=== PATIENT | male | born 1985 | race Caucasian/White ===

== ENCOUNTER 2017-03-08 12:23 | Emergency (ER) | payer MEDICAID, OTHER, SELFPAY ==
[~2017-03-08] VITALS: Ht 175.3 cm; Wt 104.8 kg
[2017-03-08 12:25] VITALS: BP 143/71
== END 2017-03-08 13:42 | disposition home or self-care (01) ==
LOC: ED 13:20
DX: G56.01 Carpal tunnel syndrome, right upper limb (principal); G56.22 Lesion of ulnar nerve, left upper limb; Z87.891 Personal history of nicotine dependence
CPT/HCPCS: 99281

== ENCOUNTER 2018-05-15 14:00 | Emergency (ER) | payer MEDICAID ==
[~2018-05-15] VITALS: Ht 175.3 cm; Wt 88.0 kg
[2018-05-15 14:02] VITALS: BP 113/79
[2018-05-15] MEDS ORDERED: IBUPROFEN 200 MG TABLET ONE (15:50)
[2018-05-15] MEDS ORDERED: IBUPROFEN 800 MG TABLET PO PRN (16:00)
== END 2018-05-15 15:54 | disposition home or self-care (01) ==
LOC: ED 15:48
DX: L02.414 Cutaneous abscess of left upper limb (principal)
CPT/HCPCS: 10060; 99283

== ENCOUNTER 2018-09-06 09:20 | Emergency (ER) | payer MEDICAID ==
[~2018-09-06] VITALS: Ht 175.3 cm; Wt 89.0 kg
[~2018-09-06 09:20] MED LIST: DOCU-131 PO; LINE600T33 PO; ONDA4TAB13 PO; OXYC20TA42 PO; POLY17PO5 PO
[2018-09-06 09:58] LABS: ANION GAP 9 mmol/L (5-15); CALCIUM 8.7 mg/dL (8.5-10.1); CHLORIDE 107 mmol/L (98-107)
[2018-09-06 10:37] VITALS: BP 101/59
[2018-09-06 10:39] LABS: BASOPHILS # (AUTO) 0.03 x10^3/uL (0-0.1); BASOPHILS % (AUTO) 0 % (0-1); EOSINOPHILS # (AUTO) 0.74 x10^3/uL (0-0.4); EOSINOPHILS % (AUTO) 9 % (1-7); LYMPHOCYTES # (AUTO) 2.85 x10^3/uL (1-3.4); LYMPHOCYTES % (AUTO) 34 % (22-44); MD NO; MEAN CORPUSCULAR HEMOGLOBIN 29.3 pg (27.5-34.5); MEAN CORPUSCULAR HGB CONC 34.1 g/dL (33.2-36.2); MEAN CORPUSCULAR VOLUME 85.7 fL (81-97); MEAN PLATELET VOLUME 8.5 fL (7.4-10.4); MONOCYTES # (AUTO) 0.64 x10^3/uL (0.2-0.8); MONOCYTES % (AUTO) 8 % (2-9); NEUTROPHILS # (AUTO) 4.17 x10^3/uL (1.8-6.8); NEUTROPHILS % (AUTO) 50 % (42-75); PLATELET COUNT 273 x10^3/uL (130-400); RED CELL DISTRIBUTION WIDTH 14.3 % (9.4-14.8)
== END 2018-09-06 11:58 | disposition home or self-care (01) ==
LOC: ED 11:11
DX: S00.83XA Contusion of other part of head, initial encounter (principal); F11.10 Opioid abuse, uncomplicated; R55 Syncope and collapse; R51 Headache; M54.2 Cervicalgia; X58.XXXA Exposure to other specified factors, initial encounter; Y93.89 Activity, other specified; Y99.8 Other external cause status; Y92.59 Other trade areas as the place of occurrence of the external cause
CPT/HCPCS: 36415; 70450; 72125; 80048; 80307; 85025; 93005; 99285

== ENCOUNTER 2018-10-03 11:14 | Emergency (ER) | payer MEDICAID ==
[~2018-10-03] VITALS: Ht 177.8 cm; Wt 88.8 kg
[2018-10-03] MEDS ORDERED: ONDANSETRON ODT 4 MG PO ONE (12:30)
[2018-10-03 12:36] LABS: BASOPHILS # (AUTO) 0.03 x10^3/uL (0-0.1); BASOPHILS % (AUTO) 0 % (0-1); EOSINOPHILS # (AUTO) 0.26 x10^3/uL (0-0.4); EOSINOPHILS % (AUTO) 2 % (1-7); LYMPHOCYTES # (AUTO) 1.95 x10^3/uL (1-3.4); LYMPHOCYTES % (AUTO) 15 % (22-44); MD NO; MEAN CORPUSCULAR HEMOGLOBIN 29.4 pg (27.5-34.5); MEAN CORPUSCULAR HGB CONC 34.3 g/dL (33.2-36.2); MEAN CORPUSCULAR VOLUME 85.9 fL (81-97); MEAN PLATELET VOLUME 8.1 fL (7.4-10.4); MONOCYTES % (AUTO) 8 % (2-9); NEUTROPHILS # (AUTO) 9.97 x10^3/uL (1.8-6.8); NEUTROPHILS % (AUTO) 76 % (42-75); PLATELET COUNT 293 x10^3/uL (130-400); RED BLOOD COUNT 5.27 x10^6/uL (4.38-5.82); RED CELL DISTRIBUTION WIDTH 13.6 % (9.4-14.8)
[2018-10-03] MEDS ORDERED: ONDANSETRON ODT 4 MG ONE (12:47)
[2018-10-03 12:48] LABS: ALBUMIN 3.7 g/dL (3.4-5.0); ANION GAP 8 mmol/L (5-15); CHLORIDE 108 mmol/L (98-107)
[2018-10-03 12:52] LABS: ALANINE AMINOTRANSFERASE 35 U/L (12-78); ALKALINE PHOSPHATASE 78 U/L (45-117); BILIRUBIN,TOTAL 0.4 mg/dL (0.2-1.0); TOTAL PROTEIN 7.2 g/dL (6.4-8.2)
[2018-10-03] MEDS ORDERED: SODIUM CHLORIDE 0.9% 1,000 ML IV ONE (13:06)
[2018-10-03] MEDS ORDERED: HYDROmorphone 2 MG/ML, 1ML ONE (13:15)
[2018-10-03] MEDS ORDERED: ONDANSETRON 2MG/ML, 2ML ONE (13:15)
[2018-10-03] MEDS ORDERED: ONDANSETRON 2MG/ML, 2ML IVPush ONE (13:30)
[2018-10-03] MEDS ORDERED: SODIUM CHLORIDE FLUSH 10ML SYR IVF ONE (13:30)
[2018-10-03] MEDS ORDERED: SODIUM CHLORIDE 0.9% 1,000ML IVBOLUS ONE (13:30)
[2018-10-03] MEDS ORDERED: HYDROmorphone 2 MG/ML, 1ML IVPush PRN (13:30)
[2018-10-03] MEDS ORDERED: OMNIPAQUE 350 MG/ML, 100ML BOTTLE ONE (14:23)
[2018-10-03 15:39] LABS: MICROSCOPIC NOT IND
[2018-10-03 15:46] LABS: CULTURE INDICATED? NO
[2018-10-03 17:23] VITALS: BP 116/71
== END 2018-10-03 17:26 | disposition home or self-care (01) ==
LOC: ED 13:26
DX: K52.9 Noninfective gastroenteritis and colitis, unspecified (principal); E86.9 Volume depletion, unspecified; Z90.89 Acquired absence of other organs
CPT/HCPCS: 36415; 74177; 80053; 81003; 83690; 85025; 96374; 96375; 99285; J1170; J2405; Q0162; Q9967

== ENCOUNTER 2018-10-12 03:10 | Inpatient (IN) | payer MEDICAID ==
[~2018-10-12] VITALS: Ht 177.8 cm; Wt 96.0 kg
[2018-10-12] MEDS ORDERED: ONDANSETRON 2MG/ML, 2ML ONE ×2 (03:43→08:06)
[2018-10-12] MEDS ORDERED: FAMOTIDINE 20 MG/2 ML ONE (03:44)
[2018-10-12] MEDS ORDERED: HYDROmorphone 2 MG/ML, 1ML ONE ×4 (03:44→10:39)
[2018-10-12] MEDS: HYDROmorphone 2 MG/ML, 1ML IVPush PRN ×7 (03:46→23:15)
[2018-10-12 04:00] LABS: BASOPHILS # (AUTO) 0.05 x10^3/uL (0-0.1); BASOPHILS % (AUTO) 0 % (0-1); EOSINOPHILS % (AUTO) 6 % (1-7); LYMPHOCYTES # (AUTO) 1.76 x10^3/uL (1-3.4); LYMPHOCYTES % (AUTO) 14 % (22-44); MD NO; MEAN CORPUSCULAR HEMOGLOBIN 29.1 pg (27.5-34.5); MEAN CORPUSCULAR HGB CONC 34.1 g/dL (33.2-36.2); MEAN CORPUSCULAR VOLUME 85.3 fL (81-97); MEAN PLATELET VOLUME 9.2 fL (7.4-10.4); MONOCYTES # (AUTO) 0.55 x10^3/uL (0.2-0.8); MONOCYTES % (AUTO) 4 % (2-9); NEUTROPHILS # (AUTO) 9.59 x10^3/uL (1.8-6.8); NEUTROPHILS % (AUTO) 76 % (42-75); PLATELET COUNT 299 x10^3/uL (130-400); RED BLOOD COUNT 5.24 x10^6/uL (4.38-5.82); RED CELL DISTRIBUTION WIDTH 13.8 % (9.4-14.8)
[2018-10-12] MEDS ORDERED: SODIUM CHLORIDE FLUSH 10ML SYR IVF ONE (04:00)
[2018-10-12] MEDS ORDERED: ONDANSETRON 2MG/ML, 2ML IVPush ONE (04:00)
[2018-10-12] MEDS ORDERED: FAMOTIDINE 20 MG/2 ML IVP ONE (04:00)
[2018-10-12 04:12] LABS: ALANINE AMINOTRANSFERASE 13 U/L (12-78); ALBUMIN 3.3 g/dL (3.4-5.0); ANION GAP 9 mmol/L (5-15); CALCIUM 8.4 mg/dL (8.5-10.1); CHLORIDE 104 mmol/L (98-107); CREATININE 0.89 mg/dL (0.7-1.3)
[2018-10-12 04:14] LABS: ALKALINE PHOSPHATASE 79 U/L (45-117); BILIRUBIN,TOTAL 0.5 mg/dL (0.2-1.0); TOTAL PROTEIN 7.1 g/dL (6.4-8.2)
[2018-10-12] MEDS ORDERED: METOCLOPRAMIDE 5 MG/ML, 2ML IVPush ONE (05:00)
[2018-10-12] MEDS ORDERED: METOCLOPRAMIDE 5 MG/ML, 2ML ONE (05:01)
[2018-10-12] MEDS ORDERED: OMNIPAQUE 350 MG/ML, 100ML BOTTLE ONE (05:42)
[2018-10-12] MEDS ORDERED: METRONIDAZOLE PMX 500MG/100ML 100 ML ONE (06:15)
[2018-10-12] MEDS ORDERED: HYDROmorphone 1 MG/ML, 1ML IV ONE (06:30)
[2018-10-12] MEDS ORDERED: CEFEPIME 2 GM in DEXTROSE 5% 100 ML IV ONE (06:30)
[2018-10-12] MEDS ORDERED: METRONIDAZOLE PMX 500MG/100ML 100 ML IV SCH (06:30)
[2018-10-12 07:11] LABS: MICROSCOPIC INDICATED
[2018-10-12 07:22] LABS: CULTURE INDICATED? NO
[2018-10-12 07:30] LABS: CLOSTRIDIUM DIFFICILE ANTIGEN NEGATIVE; CLOSTRIDIUM DIFFICILE TOXIN NEGATIVE (Negative)
[2018-10-12] MEDS ORDERED: HYDROmorphone 1 MG/ML, 1ML IV PRN (07:30)
[2018-10-12] MEDS: SODIUM CHLORIDE 0.9% 1,000 ML IV SCH ×6 (07:30→21:17)
[2018-10-12] MEDS ORDERED: ONDANSETRON ODT 4 MG PO PRN (08:00)
[2018-10-12] MEDS ORDERED: hydrALAzine 20 MG/ML, 1ML IVPush PRN (08:00)
[2018-10-12] MEDS ORDERED: PROCHLORPERAZINE 5 MG/ML, 2ML IV PRN (08:00)
[2018-10-12] MEDS ORDERED: POTASSIUM CHLORIDE 40 MEQ in SODIUM CHLORIDE 0.9% 500 ML IV ONE (08:00)
[2018-10-12] MEDS ORDERED: LABETALOL 5MG/ML, 20ML IVPush PRN (08:00)
[2018-10-12] MEDS: CEFTRIAXONE PMX 1GM/50ML 50 ML IV SCH (08:00)
[2018-10-12] MEDS ORDERED: ACETAMINOPHEN 325 MG TABLET PO PRN (08:00)
[2018-10-12] MEDS ORDERED: FENTANYL PF 250 MCG/5ML ONE ×2 (08:03→09:31)
[2018-10-12] MEDS ORDERED: MIDAZOLAM 1 MG/ML, 2ML ONE (08:03)
[2018-10-12] MEDS ORDERED: ROCURONIUM 10MG/ML,5ML ONE ×2 (08:06→10:09)
[2018-10-12] MEDS ORDERED: DEXAMETHASONE 4 MG/ML, 1ML ONE (08:06)
[2018-10-12] MEDS ORDERED: CEFAZOLIN 1,000 MG ONE (08:06)
[2018-10-12] MEDS ORDERED: GLYCOPYRROLATE 0.2MG/1ML, 5ML ONE (08:06)
[2018-10-12] MEDS ORDERED: NEOSTIGMINE 1 MG/ML, 10ML ONE (08:06)
[2018-10-12] MEDS ORDERED: PROPOFOL 10 MG/ML, 20ML ONE (08:06)
[2018-10-12] MEDS ORDERED: SUCCINYLCHOLINE 20 MG/ML, 10ML ONE (08:06)
[2018-10-12 08:09] VITALS: BP 140/83
[2018-10-12] MEDS ORDERED: BUPIVACAINE/PF-EPI 0.5% 1:200K ONE (08:31)
[2018-10-12] MEDS: FAMOTIDINE 20 MG/2 ML IVPush SCH ×2 (09:00→21:17)
[2018-10-12] MEDS ORDERED: LABETALOL 5MG/ML, 20ML IV PRN (09:00)
[2018-10-12] MEDS ORDERED: ONDANSETRON ODT 8 MG PO PRN (09:00)
[2018-10-12] MEDS ORDERED: MORPHINE SULFATE 4 MG/ML, 1ML IVPush PRN (09:00)
[2018-10-12] MEDS ORDERED: ONDANSETRON 2MG/ML, 2ML IV PRN (09:00)
[2018-10-12] MEDS ORDERED: PROMETHAZINE 25 MG SUPP PR PRN (09:00)
[2018-10-12] MEDS ORDERED: PROMETHAZINE 25 MG/ML, 1ML IV PRN (09:00)
[2018-10-12] MEDS ORDERED: MEPERIDINE/PF 25MG/0.5ML IVPush PRN (09:00)
[2018-10-12] MEDS ORDERED: OXYcodone 5 MG/5 ML ORAL.SOL UDC PO PRN (09:00)
[2018-10-12] MEDS ORDERED: PROMETHAZINE 25 MG/ML, 1ML IM PRN ×2 (09:00)
[2018-10-12] MEDS ORDERED: PROMETHAZINE 12.5 MG SUPP PR PRN (09:00)
[2018-10-12] MEDS: METRONIDAZOLE PMX 500MG/100ML 100 ML IV SCH ×3 (09:00→21:17)
[2018-10-12] MEDS ORDERED: hydrALAzine 20 MG/ML, 1ML IV PRN (09:00)
[2018-10-12] MEDS ORDERED: BUPIVACAINE/PF-EPI 0.5% 1:200K INFIL ONE (09:13)
[2018-10-12] MEDS ORDERED: FENTANYL PF 100 MCG/2ML ONE ×5 (09:20→10:39)
[2018-10-12] MEDS: FENTANYL PF 100 MCG/2ML IV PRN ×2 (10:40→10:50)
[2018-10-12] MEDS: HYDROmorphone 1 MG/ML, 1ML IV PRN ×4 (10:45→11:10)
[2018-10-12] MEDS ORDERED: ACETAMINOPHEN 500 MG TABLET PO PRN (11:00)
[2018-10-12] MEDS: KETOROLAC 30 MG/1 ML IVPush SCH ×2 (11:00→19:51)
[2018-10-12] MEDS ORDERED: KETOROLAC 30 MG/1 ML ONE (11:04)
[2018-10-12 12:10] LABS: FREE T4 (FREE THYROXINE) 1.06 ng/dL (0.76-1.46); THYROID STIMULATING HORMONE 5.66 mIU/L (0.358-3.740)
[2018-10-12 12:16] VITALS: BP 128/83
[2018-10-12 12:56] LABS: INTERNATIONAL NORMALIZED RATIO 1.32 (0.93-1.1); PROTHROMBIN TIME 13.8 Seconds (9.6-11.5)
[2018-10-12] MEDS: NICOTINE 7 MG/24 HR PATCH.TD24 TD SCH (12:58)
[2018-10-12 14:30] VITALS: BP 119/71
[2018-10-12 19:45] VITALS: BP 111/96
[2018-10-13] MEDS: SODIUM CHLORIDE 0.9% 1,000 ML IV SCH ×4 (01:32→19:59)
[2018-10-13 01:55] VITALS: BP 122/74
[2018-10-13] MEDS: METRONIDAZOLE PMX 500MG/100ML 100 ML IV SCH ×4 (02:37→21:28)
[2018-10-13] MEDS: KETOROLAC 30 MG/1 ML IVPush SCH ×4 (02:37→19:59)
[2018-10-13 07:04] LABS: MEAN CORPUSCULAR HEMOGLOBIN 28.2 pg (27.5-34.5); MEAN CORPUSCULAR VOLUME 85.4 fL (81-97); MEAN PLATELET VOLUME 8.7 fL (7.4-10.4); PLATELET COUNT 222 x10^3/uL (130-400); RED BLOOD COUNT 4.65 x10^6/uL (4.38-5.82); RED CELL DISTRIBUTION WIDTH 13.1 % (9.4-14.8)
[2018-10-13 07:13] LABS: ALBUMIN 2.6 g/dL (3.4-5.0); ANION GAP 4 mmol/L (5-15); CALCIUM 8.3 mg/dL (8.5-10.1); CHLORIDE 109 mmol/L (98-107)
[2018-10-13 07:15] LABS: ALANINE AMINOTRANSFERASE 11 U/L (12-78); ALKALINE PHOSPHATASE 67 U/L (45-117); BILIRUBIN,TOTAL 0.7 mg/dL (0.2-1.0); CREATININE 0.75 mg/dL (0.7-1.3); TOTAL PROTEIN 5.6 g/dL (6.4-8.2)
[2018-10-13 07:17] LABS: BASOPHILS # (AUTO) 0.02 x10^3/uL (0-0.1); BASOPHILS % (AUTO) 0 % (0-1); EOSINOPHILS # (AUTO) 0.07 x10^3/uL (0-0.4); EOSINOPHILS % (AUTO) 0 % (1-7); LYMPHOCYTES # (AUTO) 0.92 x10^3/uL (1-3.4); LYMPHOCYTES % (AUTO) 6 % (22-44); MD SCAN; MONOCYTES % (AUTO) 2 % (2-9); NEUTROPHILS # (AUTO) 15.53 x10^3/uL (1.8-6.8); NEUTROPHILS % (AUTO) 92 % (42-75)
[2018-10-13] MEDS: CEFTRIAXONE PMX 1GM/50ML 50 ML IV SCH (08:24)
[2018-10-13] MEDS: NICOTINE 7 MG/24 HR PATCH.TD24 TD SCH (08:24)
[2018-10-13 09:00] VITALS: BP 123/71
[2018-10-13] MEDS ORDERED: MAGNESIUM SULFATE PMX 2GM/50ML 50 ML IV ONE (09:00)
[2018-10-13] MEDS: HYDROmorphone 2 MG/ML, 1ML IVPush PRN ×5 (09:34→21:29)
[2018-10-13] MEDS: FAMOTIDINE 20 MG/2 ML IVPush SCH ×2 (09:34→21:29)
[2018-10-13 13:10] VITALS: BP 122/59
[2018-10-13 14:15] LABS: AMPHETAMINE SCREEN, URINE Positive (Negative); BARBITURATE SCREEN, URINE Negative (Negative); BENZODIAZEPINE SCREEN, URINE Negative (Negative); CANNABINOID SCREEN, URINE Positive (Negative); COCAINE SCREEN, URINE Negative (Negative); METHADONE SCREEN, URINE Negative (Negative); OPIATE SCREEN, URINE Positive (Negative)
[2018-10-13] MEDS: LIDODERM 5% PATCH TD SCH (16:59)
[2018-10-13 18:45] VITALS: BP 128/67
[2018-10-14] MEDS: HYDROmorphone 2 MG/ML, 1ML IVPush PRN ×6 (00:34→19:46)
[2018-10-14 01:40] VITALS: BP 125/73
[2018-10-14] MEDS: KETOROLAC 30 MG/1 ML IVPush SCH ×4 (02:12→20:38)
[2018-10-14] MEDS: SODIUM CHLORIDE 0.9% 1,000 ML IV SCH ×3 (02:13→17:13)
[2018-10-14] MEDS: METRONIDAZOLE PMX 500MG/100ML 100 ML IV SCH ×4 (03:15→20:38)
[2018-10-14 07:18] LABS: ANION GAP 9 mmol/L (5-15); CALCIUM 8.1 mg/dL (8.5-10.1); CHLORIDE 110 mmol/L (98-107); CREATININE 0.62 mg/dL (0.7-1.3)
[2018-10-14 07:35] VITALS: BP 116/65
[2018-10-14 07:35] LABS: MEAN CORPUSCULAR HEMOGLOBIN 28.6 pg (27.5-34.5); MEAN CORPUSCULAR HGB CONC 33.3 g/dL (33.2-36.2); MEAN CORPUSCULAR VOLUME 85.7 fL (81-97); PLATELET COUNT 226 x10^3/uL (130-400); RED BLOOD COUNT 4.32 x10^6/uL (4.38-5.82); RED CELL DISTRIBUTION WIDTH 13.5 % (9.4-14.8)
[2018-10-14 08:11] LABS: BASOPHILS # (AUTO) 0.01 x10^3/uL (0-0.1); BASOPHILS % (AUTO) 0 % (0-1); EOSINOPHILS % (AUTO) 2 % (1-7); LYMPHOCYTES # (AUTO) 1.43 x10^3/uL (1-3.4); LYMPHOCYTES % (AUTO) 11 % (22-44); MD SCAN; MONOCYTES # (AUTO) 0.72 x10^3/uL (0.2-0.8); MONOCYTES % (AUTO) 5 % (2-9); NEUTROPHILS # (AUTO) 10.97 x10^3/uL (1.8-6.8); NEUTROPHILS % (AUTO) 82 % (42-75)
[2018-10-14] MEDS: CEFTRIAXONE PMX 1GM/50ML 50 ML IV SCH (08:19)
[2018-10-14] MEDS: FAMOTIDINE 20 MG/2 ML IVPush SCH ×2 (08:19→21:51)
[2018-10-14] MEDS: NICOTINE 7 MG/24 HR PATCH.TD24 TD SCH (08:19)
[2018-10-14] MEDS: OXYcodone IR 5MG TABLET PO PRN ×3 (12:09→21:51)
[2018-10-14 12:27] VITALS: BP 116/71
[2018-10-14] MEDS: LIDODERM 5% PATCH TD SCH (16:59)
[2018-10-14 19:45] VITALS: BP 110/70
[2018-10-15] MEDS: HYDROmorphone 2 MG/ML, 1ML IVPush PRN ×6 (00:45→22:49)
[2018-10-15] MEDS: SODIUM CHLORIDE 0.9% 1,000 ML IV SCH ×4 (00:45→22:48)
[2018-10-15] MEDS: OXYcodone IR 5MG TABLET PO PRN ×5 (01:57→19:47)
[2018-10-15] MEDS: KETOROLAC 30 MG/1 ML IVPush SCH ×4 (01:57→19:47)
[2018-10-15] MEDS: METRONIDAZOLE PMX 500MG/100ML 100 ML IV SCH ×4 (01:57→19:47)
[2018-10-15 01:59] VITALS: BP 132/93
[2018-10-15 05:46] LABS: CHLORIDE 110 mmol/L (98-107)
[2018-10-15 05:57] LABS: ALANINE AMINOTRANSFERASE 10 U/L (12-78); ALBUMIN 2.5 g/dL (3.4-5.0); ALKALINE PHOSPHATASE 58 U/L (45-117); ANION GAP 7 mmol/L (5-15); BILIRUBIN,TOTAL 0.3 mg/dL (0.2-1.0); CALCIUM 8.6 mg/dL (8.5-10.1); CREATININE 0.53 mg/dL (0.7-1.3); TOTAL PROTEIN 5.6 g/dL (6.4-8.2)
[2018-10-15 06:01] LABS: MEAN CORPUSCULAR HEMOGLOBIN 29.4 pg (27.5-34.5); MEAN CORPUSCULAR HGB CONC 34.4 g/dL (33.2-36.2); MEAN CORPUSCULAR VOLUME 85.5 fL (81-97); MEAN PLATELET VOLUME 8.7 fL (7.4-10.4); PLATELET COUNT 213 x10^3/uL (130-400); RED BLOOD COUNT 4.14 x10^6/uL (4.38-5.82); RED CELL DISTRIBUTION WIDTH 13.6 % (9.4-14.8)
[2018-10-15 06:25] LABS: BASOPHILS # (AUTO) 0.04 x10^3/uL (0-0.1); BASOPHILS % (AUTO) 0 % (0-1); EOSINOPHILS # (AUTO) 1.29 x10^3/uL (0-0.4); EOSINOPHILS % (AUTO) 13 % (1-7); LYMPHOCYTES # (AUTO) 2.19 x10^3/uL (1-3.4); LYMPHOCYTES % (AUTO) 23 % (22-44); MD SCAN; MONOCYTES # (AUTO) 0.57 x10^3/uL (0.2-0.8); MONOCYTES % (AUTO) 6 % (2-9); NEUTROPHILS # (AUTO) 5.65 x10^3/uL (1.8-6.8); NEUTROPHILS % (AUTO) 58 % (42-75)
[2018-10-15 07:07] VITALS: BP 126/80
[2018-10-15] MEDS: NICOTINE 7 MG/24 HR PATCH.TD24 TD SCH (07:59)
[2018-10-15] MEDS: FAMOTIDINE 20 MG/2 ML IVPush SCH ×2 (07:59→19:47)
[2018-10-15] MEDS: CEFTRIAXONE PMX 1GM/50ML 50 ML IV SCH (09:12)
[2018-10-15 12:00] VITALS: BP 137/92
[2018-10-15] MEDS: LIDODERM 5% PATCH TD SCH (17:21)
[2018-10-15 19:49] VITALS: BP 138/86
[2018-10-16 01:40] VITALS: BP 122/83
[2018-10-16] MEDS: OXYcodone IR 5MG TABLET PO PRN ×3 (01:47→09:50)
[2018-10-16] MEDS: METRONIDAZOLE PMX 500MG/100ML 100 ML IV SCH ×2 (02:01→08:11)
[2018-10-16] MEDS: KETOROLAC 30 MG/1 ML IVPush SCH ×2 (02:01→08:11)
[2018-10-16] MEDS: SODIUM CHLORIDE 0.9% 1,000 ML IV SCH (06:12)
[2018-10-16 07:27] VITALS: BP 135/90
[2018-10-16] MEDS: FAMOTIDINE 20 MG/2 ML IVPush SCH (08:11)
[2018-10-16] MEDS: NICOTINE 7 MG/24 HR PATCH.TD24 TD SCH (08:11)
[2018-10-16 08:31] LABS: BASOPHILS # (AUTO) 0.02 x10^3/uL (0-0.1); BASOPHILS % (AUTO) 0 % (0-1); EOSINOPHILS # (AUTO) 1.47 x10^3/uL (0-0.4); EOSINOPHILS % (AUTO) 18 % (1-7); LYMPHOCYTES # (AUTO) 1.37 x10^3/uL (1-3.4); LYMPHOCYTES % (AUTO) 17 % (22-44); MD NO; MEAN CORPUSCULAR HEMOGLOBIN 29.3 pg (27.5-34.5); MEAN CORPUSCULAR HGB CONC 33.9 g/dL (33.2-36.2); MEAN CORPUSCULAR VOLUME 86.4 fL (81-97); MEAN PLATELET VOLUME 7.8 fL (7.4-10.4); MONOCYTES # (AUTO) 0.46 x10^3/uL (0.2-0.8); MONOCYTES % (AUTO) 6 % (2-9); NEUTROPHILS # (AUTO) 4.99 x10^3/uL (1.8-6.8); NEUTROPHILS % (AUTO) 60 % (42-75); PLATELET COUNT 303 x10^3/uL (130-400); RED BLOOD COUNT 4.64 x10^6/uL (4.38-5.82); RED CELL DISTRIBUTION WIDTH 13.5 % (9.4-14.8)
[2018-10-16 08:34] LABS: ANION GAP 7 mmol/L (5-15); CALCIUM 8.5 mg/dL (8.5-10.1); CHLORIDE 108 mmol/L (98-107)
[2018-10-16] MEDS: CEFTRIAXONE PMX 1GM/50ML 50 ML IV SCH (09:49)
[2018-10-16] MEDS ORDERED: OXYC5TAB3 PO (10:50)
== END 2018-10-16 12:50 | disposition home or self-care (01) | DRG 329 ==
LOC: ED 03:39 → EDIP 06:17 → 4NOR 07:10
PROVIDERS: ADMIT Internal Medicine; ATTEND Internal Medicine
PROC: 0WJG4ZZ Inspection of Peritoneal Cavity, Percutaneous Endoscopic Approach (ICD-10-PCS; 2018-10-12)
PROC: 0DTN0ZZ Resection of Sigmoid Colon, Open Approach (ICD-10-PCS; principal; 2018-10-12 07:45)
DX: K51.90 Ulcerative colitis, unspecified, without complications (principal); K65.9 Peritonitis, unspecified; K56.2 Volvulus; K56.7 Ileus, unspecified; Q43.8 Other specified congenital malformations of intestine; E86.0 Dehydration; D72.829 Elevated white blood cell count, unspecified; E87.6 Hypokalemia; F17.210 Nicotine dependence, cigarettes, uncomplicated; K62.89 Other specified diseases of anus and rectum; Z83.3 Family history of diabetes mellitus; Z90.49 Acquired absence of other specified parts of digestive tract
CPT/HCPCS: 36415; 74021; 99285; J3490; 74177; 80048; 80053; 80307; 81001; 83605; 83690; 83735; 84100; 84439; 84443; 85025; 85610; 85730; 87040; 87324; 88307; 89055; 96374; 96375; 96376; C1729; G0378; J0690; J0696; J1100; J1170; J1885; J2250; J2270; J2405; J2704; J2710; J3010; J3480; Q9967; J0330; J2765; J3475; J7030; J7040

== ENCOUNTER 2018-10-30 10:28 | Emergency (ER) | payer MEDICAID ==
[~2018-10-30] VITALS: Ht 177.8 cm; Wt 86.5 kg
[~2018-10-30 10:28] MED LIST changes: +OXYC5TAB3 PO
[2018-10-30 10:38] VITALS: BP 121/72
== END 2018-10-30 11:48 | disposition home or self-care (01) ==
LOC: ED 11:08
DX: S31.115D Laceration without foreign body of abdominal wall, periumbilic region without penetration into peritoneal cavity, subsequent encounter (principal); X58.XXXD Exposure to other specified factors, subsequent encounter; F17.200 Nicotine dependence, unspecified, uncomplicated; Z90.89 Acquired absence of other organs
CPT/HCPCS: 99282

== ENCOUNTER 2020-12-10 10:32 | Emergency (ER) | payer MEDICAID ==
[~2020-12-10] VITALS: Ht 180.3 cm; Wt 109.1 kg
[~2020-12-10 10:32] MED LIST changes: +LINE600T15 PO; -LINE600T33 PO
--- NOTE | 2020-12-10 10:39 | NUR ---
BIB EMS FOR C/O LOWER BACK PAIN RADIATING TO L LEG. HX L4-L5 HERNIATED DISCS. PT WAS FINE UNTIL HE ROLLED OUT OF BED THIS AM AND PAIN STARTED. DENIES ANY INJURY/TRAUMA/LIFTING ANYTHIING HEAVY RECENTLY. [facility] HR 100, RR 18, BP 146/85, 94% RA. PT RESTING ON GURNEY. NADN. VSS. MONITORS APPLIED.
--- NOTE | 2020-12-10 10:43 | NUR ---
AVE KRUEGER AT BEDSIDE FOR EVAL.
[2020-12-10] MEDS ORDERED: KETOROLAC 60 MG/2 ML ONE (10:49)
[2020-12-10] MEDS ORDERED: METHOCARBAMOL 750 MG TABLET ONE (10:49)
[2020-12-10] MEDS ORDERED: KETOROLAC 30 MG/1 ML IM ONE (11:00)
[2020-12-10] MEDS ORDERED: METHOCARBAMOL 750 MG TABLET PO ONE (11:00)
--- NOTE | 2020-12-10 11:56 | NUR ---
PT RESTING ON [facility]. VALENTIN. VSS. PT STATES IMPROVED FROM 06/29 TO 04/29. PLACED FOR RECHECK.
[2020-12-10 12:32] VITALS: BP 142/87
--- NOTE | 2020-12-10 12:32 | NUR ---
[facility] RESTING ON [facility]. VSS. MEDICATED PER JAN.
== END 2020-12-10 13:31 | disposition home or self-care (01) ==
LOC: ED 11:20
DX: M54.5 Low back pain (principal); F17.200 Nicotine dependence, unspecified, uncomplicated; Z90.49 Acquired absence of other specified parts of digestive tract
CPT/HCPCS: 96372; 99283; J1885; J7512

== ENCOUNTER 2020-12-23 08:49 | Inpatient (IN) | payer MEDICAID ==
[~2020-12-23] VITALS: Ht 177.8 cm; Wt 112.2 kg
[~2020-12-23 08:49] MED LIST changes: -OXYC5TAB3 PO; +OXYC5TAB98 PO
--- NOTE | 2020-12-23 09:11 | NUR ---
PT AMBULATORY TO ROOM 25 W/ C/O LOWER BACK PAIN X 2 WEEKS. PT STATES HE WAS SEEN HERE FOR SAME 12/10 AND WAS PRESCRIBED PREDNISONE. PT STATES NO IMPROVEMENTS SINCE PT STATES PAIN "GOT WORSE. MY SCIATIC NERVE WENT OUT". PT RESTING ON GURNEY. HANSON.
[2020-12-23] MEDS ORDERED: KETOROLAC 30 MG/1 ML ONE (09:17)
[2020-12-23] MEDS ORDERED: KETOROLAC 30 MG/1 ML IM ONE (09:30)
--- NOTE | 2020-12-23 10:15 | NUR ---
PT RESTING ON GURNEY. NADN. JAMES.
--- NOTE | 2020-12-23 10:18 | NUR ---
PT CHART REVIEWED AND PLACED FOR RECHECK.
--- NOTE | 2020-12-23 11:00 | NUR ---
ERP DR. PHILIP AT BEDSIDE FOR RE-EVAL.
--- NOTE | 2020-12-23 11:31 | NUR ---
PT RESTING ON GURNEY. NADN. JAMES.
--- NOTE | 2020-12-23 13:07 | NUR ---
ERP DR. RIVERA AT BEDSIDE FOR EVAL.
--- NOTE | 2020-12-23 13:24 | NUR ---
PT RESTING ON GURNEY. NADN. JAMES.
[2020-12-23 14:21] LABS: BASOPHILS % (AUTO) 1 % (0-1); EOSINOPHILS % (AUTO) 2 % (1-7); LYMPHOCYTES % (AUTO) 22 % (22-44); MEAN CORPUSCULAR HEMOGLOBIN 29.9 pg (27.5-34.5); MEAN CORPUSCULAR HGB CONC 33.7 g/dL (33.2-36.2); MEAN PLATELET VOLUME 8.2 fL (7.4-10.4); MONOCYTES % (AUTO) 5 % (2-9); NEUTROPHILS % (AUTO) 71 % (42-75); PLATELET COUNT 254 x10^3/uL (130-400); RED BLOOD COUNT 5.65 x10^6/uL (4.38-5.82); RED CELL DISTRIBUTION WIDTH 13.1 % (9.4-14.8)
[2020-12-23 14:23] LABS: ALANINE AMINOTRANSFERASE 109 U/L (12-78); ALBUMIN 4.2 g/dL (3.4-5.0); ANION GAP 8 mmol/L (5-15); CALCIUM 9.4 mg/dL (8.5-10.1); CHLORIDE 107 mmol/L (98-107)
--- NOTE | 2020-12-23 14:23 | NUR ---
PT RESTING ON GURNEY. NADN. JAMES.
[2020-12-23 14:24] LABS: MD NO
[2020-12-23 14:26] LABS: ALKALINE PHOSPHATASE 64 U/L (45-117); BILIRUBIN,TOTAL 0.9 mg/dL (0.2-1.0); TOTAL PROTEIN 7.9 g/dL (6.4-8.2)
--- NOTE | 2020-12-23 14:28 | NUR ---
HAILE VALENZUELA IN LAB PT-PTT MIXING STUDY ORDERED FOR PT. HAILE VALENZUELA THAT IS A ARE STUDY THAT IS NOT DONE OFTEN AND THEY WOULD LIKE CLARIFICATION ON ORDER. PAGED DR. RIVERA AT [phone]. AWAITING CALL BACK.
--- NOTE | 2020-12-23 14:32 | NUR ---
PER DR. RIVERA DID NOT MEAN TO ORDER PT-PTT MIXING STUDY AND MEANT TO ORDER PT-PTT SEPARATE STUDY. READ BACK VERIFIED. NICOLAS IN HEMATOLOGY NOTIFIED.
[2020-12-23 14:44] LABS: INTERNATIONAL NORMALIZED RATIO 1.02 (0.93-1.1); PROTHROMBIN TIME 10.9 Seconds (9.6-11.5)
--- NOTE | 2020-12-23 15:17 | NUR ---
PT RESTING ON GURNEY. NADN. JAMES.
--- NOTE | 2020-12-23 16:20 | NUR ---
PT RESTING ON [facility]. S. AWARE OF POC FOR OR AT 1730.
--- NOTE | 2020-12-23 16:25 | NUR ---
REPORT GIVEN TO PRE-OP RN. ALL QUESTIONS ANSWERED. AWAITING PT TRANSPORT.
--- NOTE | 2020-12-23 17:19 | NUR ---
PT RESTING ON GURNEY. NADN. JAMES.
[2020-12-23] MEDS ORDERED: BACITRACIN OINT 500U/GM, 15 GM ONE (17:58)
[2020-12-23] MEDS ORDERED: BUPIVACAINE/PF 0.5% ONE (17:58)
[2020-12-23] MEDS ORDERED: EPINEPHRINE 1 MG/ML, 1ML ONE (17:58)
[2020-12-23] MEDS ORDERED: VANCOMYCIN 1,000 MG ONE (17:58)
[2020-12-23] MEDS ORDERED: BACITRACIN 50,000 UNIT ONE (17:59)
[2020-12-23] MEDS ORDERED: MIDAZOLAM 1 MG/ML, 2ML ONE (18:10)
[2020-12-23] MEDS ORDERED: FENTANYL PF 250 MCG/5ML ONE ×2 (18:11→18:52)
[2020-12-23] MEDS ORDERED: HYDROmorphone 1 MG/ML, 1ML INJ IVPush PRN (18:30)
[2020-12-23] MEDS ORDERED: CEFAZOLIN 1,000 MG ONE (18:30)
[2020-12-23] MEDS ORDERED: OXYcodone 5 MG/5 ML ORAL.SOL UDC PO PRN (18:30)
[2020-12-23] MEDS ORDERED: NEOSTIGMINE 1 MG/ML, 10ML ONE (18:30)
[2020-12-23] MEDS ORDERED: MEPERIDINE/PF 25MG/0.5ML IVPush PRN (18:30)
[2020-12-23] MEDS ORDERED: ROCURONIUM 10 MG/ML,10ML ONE (18:30)
[2020-12-23] MEDS ORDERED: GLYCOPYRROLATE 0.2MG/1ML, 5ML ONE (18:30)
[2020-12-23] MEDS ORDERED: ONDANSETRON 2MG/ML, 2ML IVPush PRN ×2 (18:30→22:30)
[2020-12-23] MEDS ORDERED: ACETAMINOPHEN 325 MG TABLET PO PRN ×2 (18:30→22:30)
[2020-12-23] MEDS ORDERED: PROPOFOL 10 MG/ML, 20ML ONE (18:30)
[2020-12-23] MEDS ORDERED: morphine SULFATE 10 MG/ML, 1ML IVPush PRN (18:30)
[2020-12-23] MEDS ORDERED: BACITRACIN 50,000 UNIT IRRIG ONE (18:57)
[2020-12-23] MEDS ORDERED: BUPIVACAINE/PF-EPI 0.5% 1:200K INFIL ONE (18:58)
[2020-12-23] MEDS ORDERED: THROMBIN (RECOMBINANT) 20,000 UNIT VIAL TP ONE (18:58)
[2020-12-23] MEDS ORDERED: VANCOMYCIN 1,000 MG IM ONE (20:21)
[2020-12-23] MEDS ORDERED: FENTANYL PF 100 MCG/2ML ONE ×2 (20:27→21:06)
[2020-12-23] MEDS ORDERED: MEPERIDINE/PF 25MG/ML,1ML ONE (21:06)
[2020-12-23] MEDS ORDERED: OXYcodone 5 MG/5 ML ORAL.SOL UDC ONE (21:06)
[2020-12-23] MEDS ORDERED: HYDROmorphone 1 MG/ML, 1ML INJ ONE (21:06)
[2020-12-23] MEDS: FENTANYL PF 100 MCG/2ML IV PRN ×2 (21:27→21:39)
[2020-12-23 22:21] VITALS: BP 119/87
[2020-12-23] MEDS ORDERED: SENNA/DOCUSATE TABLET PO PRN (22:30)
[2020-12-23] MEDS ORDERED: ACETAMINOPHEN 650 MG SUPP PR PRN (22:30)
[2020-12-23] MEDS ORDERED: DIPHENHYDRAMINE 50 MG/ML, 1ML IVPush PRN (22:30)
[2020-12-23] MEDS ORDERED: LABETALOL 5MG/ML, 20ML IVPush PRN (22:30)
[2020-12-23] MEDS ORDERED: PHARMACY MAY ADJ FOR RENAL FX MC PRN (22:30)
[2020-12-23] MEDS: D5%-0.9% NACL+KCL 20MEQ 1,000 ML IV SCH (23:20)
[2020-12-24] MEDS: CEFAZOLIN PMX 1GM/50ML 50 ML IVPB SCH ×2 (01:29→09:46)
[2020-12-24] MEDS: OXYcodone IR 5MG TABLET PO PRN ×6 (01:29→22:29)
[2020-12-24 02:30] VITALS: BP 102/67
[2020-12-24 03:49] VITALS: BP 108/74
[2020-12-24 08:06] VITALS: BP 101/64
[2020-12-24] MEDS: D5%-0.9% NACL+KCL 20MEQ 1,000 ML IV SCH ×2 (08:30→18:30)
[2020-12-24] MEDS ORDERED: TAMSULOSIN 0.4 MG CAP.ER.24H PO ONE (08:30)
[2020-12-24] MEDS ORDERED: ACETAMINOPHEN 500 MG TABLET ONE (08:45)
[2020-12-24] MEDS: SODIUM CHLORIDE FLUSH 10ML SYR IVF SCH ×2 (09:39→21:42)
[2020-12-24] MEDS ORDERED: OXYC5TAB2 PO (10:55)
[2020-12-24] MEDS ORDERED: MELOXICAM 15 MG TABLET PO SCH (13:00)
[2020-12-24 13:05] VITALS: BP 116/72
[2020-12-24] MEDS: CYCLOBENZAPRINE 10 MG TABLET PO PRN (17:03)
[2020-12-24 20:56] VITALS: BP 136/75
[2020-12-25 00:53] VITALS: BP 124/75
[2020-12-25] MEDS: D5%-0.9% NACL+KCL 20MEQ 1,000 ML IV SCH ×2 (03:28→14:30)
[2020-12-25] MEDS: CYCLOBENZAPRINE 10 MG TABLET PO PRN (03:28)
[2020-12-25] MEDS: OXYcodone IR 5MG TABLET PO PRN ×4 (03:28→17:35)
[2020-12-25] MEDS: KETOROLAC 30 MG/1 ML IVPush SCH ×2 (07:37→17:35)
[2020-12-25] MEDS: TAMSULOSIN 0.4 MG CAP.ER.24H PO SCH (07:38)
[2020-12-25 07:46] VITALS: BP 103/67
[2020-12-25] MEDS: SODIUM CHLORIDE FLUSH 10ML SYR IVF SCH ×2 (09:00→20:13)
[2020-12-25 12:02] VITALS: BP 129/83
[2020-12-25] MEDS ORDERED: BUPIVACAINE/PF 0.5% ONE (19:14)
[2020-12-25] MEDS ORDERED: VANCOMYCIN 1,000 MG ONE ×3 (19:15→22:30)
[2020-12-25] MEDS ORDERED: BACITRACIN OINT 500U/GM, 15 GM ONE (19:15)
[2020-12-25] MEDS ORDERED: EPINEPHRINE 1 MG/ML, 1ML ONE (19:15)
[2020-12-25] MEDS ORDERED: BACITRACIN 50,000 UNIT ONE (19:15)
[2020-12-25 20:34] VITALS: BP 111/75
[2020-12-25] MEDS ORDERED: MIDAZOLAM 1 MG/ML, 2ML ONE (21:56)
[2020-12-25] MEDS ORDERED: FENTANYL PF 250 MCG/5ML ONE (21:56)
[2020-12-25] MEDS ORDERED: MEPERIDINE/PF 25MG/0.5ML IVPush PRN (22:30)
[2020-12-25] MEDS ORDERED: PROMETHAZINE 25 MG/ML, 1ML IVPush PRN (22:30)
[2020-12-25] MEDS ORDERED: HYDROmorphone 1 MG/ML, 1ML INJ IVPush PRN (22:30)
[2020-12-25] MEDS ORDERED: HALOPERIDOL 5 MG/ML IV PRN (22:30)
[2020-12-25] MEDS ORDERED: METHOCARBAMOL 1,000 MG in DEXTROSE 5% 100 ML IV PRN (22:30)
[2020-12-25] MEDS ORDERED: DIPHENHYDRAMINE 50 MG/ML, 1ML IVPush PRN (22:30)
[2020-12-25] MEDS ORDERED: hydrALAzine 20 MG/ML, 1ML IV PRN (22:30)
[2020-12-25] MEDS ORDERED: LABETALOL 5MG/ML, 20ML IV PRN (22:30)
[2020-12-25] MEDS ORDERED: OXYcodone 5 MG/5 ML ORAL.SOL UDC PO PRN (22:30)
[2020-12-25] MEDS ORDERED: PROPOFOL 10 MG/ML, 20ML ONE (23:51)
[2020-12-25] MEDS ORDERED: GLYCOPYRROLATE 0.2MG/1ML, 5ML ONE (23:51)
[2020-12-25] MEDS ORDERED: ONDANSETRON 2MG/ML, 2ML ONE (23:51)
[2020-12-25] MEDS ORDERED: ROCURONIUM 10MG/ML,5ML ONE (23:51)
[2020-12-25] MEDS ORDERED: NEOSTIGMINE 1 MG/ML, 10ML ONE (23:51)
[2020-12-25] MEDS ORDERED: SUCCINYLCHOLINE 20 MG/ML, 10ML ONE (23:51)
[2020-12-25] MEDS ORDERED: DEXAMETHASONE 4 MG/ML, 1ML ONE (23:51)
[2020-12-25] MEDS ORDERED: CEFAZOLIN 1,000 MG ONE (23:51)
[2020-12-26] MEDS ORDERED: FENTANYL PF 100 MCG/2ML ONE (00:08)
[2020-12-26] MEDS ORDERED: CYCLOBENZAPRINE 10 MG TABLET ONE (00:08)
[2020-12-26] MEDS ORDERED: OXYcodone 5 MG/5 ML ORAL.SOL UDC ONE (00:09)
[2020-12-26] MEDS: FENTANYL PF 100 MCG/2ML IV PRN ×2 (00:15→00:25)
[2020-12-26] MEDS ORDERED: CYCLOBENZAPRINE 10 MG TABLET PO ONE (00:30)
[2020-12-26] MEDS ORDERED: MEPERIDINE/PF 25MG/ML,1ML ONE (00:50)
[2020-12-26 01:16] VITALS: BP 117/79
[2020-12-26] MEDS ORDERED: ACETAMINOPHEN 650 MG SUPP PR PRN (01:30)
[2020-12-26] MEDS ORDERED: LABETALOL 5MG/ML, 20ML IV PRN (02:00)
[2020-12-26] MEDS ORDERED: MAGNESIUM HYDROXIDE 8%, 30ML UDC PO PRN (02:00)
[2020-12-26] MEDS ORDERED: BISACODYL 10 MG SUPP PR PRN (02:00)
[2020-12-26] MEDS ORDERED: ONDANSETRON 2MG/ML, 2ML IV PRN (02:00)
[2020-12-26] MEDS: HYDROmorphone 2 MG/ML, 1ML IVPush PRN ×4 (02:24→20:07)
[2020-12-26 04:55] VITALS: BP 101/68
[2020-12-26] MEDS: CEFAZOLIN PMX 1GM/50ML 50 ML IVPB SCH ×2 (05:37→13:43)
[2020-12-26 05:43] LABS: BASOPHILS % (AUTO) 0 % (0-1); EOSINOPHILS % (AUTO) 0 % (1-7); LYMPHOCYTES % (AUTO) 5 % (22-44); MEAN CORPUSCULAR HEMOGLOBIN 30.7 pg (27.5-34.5); MEAN CORPUSCULAR HGB CONC 35.5 g/dL (33.2-36.2); MEAN PLATELET VOLUME 7.8 fL (7.4-10.4); MONOCYTES % (AUTO) 3 % (2-9); NEUTROPHILS % (AUTO) 91 % (42-75); PLATELET COUNT 190 x10^3/uL (130-400); RED BLOOD COUNT 4.31 x10^6/uL (4.38-5.82); RED CELL DISTRIBUTION WIDTH 12.8 % (9.4-14.8)
[2020-12-26 05:49] LABS: MD NO
[2020-12-26 05:59] LABS: ANION GAP 7 mmol/L (5-15); CALCIUM 8.6 mg/dL (8.5-10.1); CHLORIDE 104 mmol/L (98-107); CREATININE 0.85 mg/dL (0.7-1.3)
[2020-12-26] MEDS: TAMSULOSIN 0.4 MG CAP.ER.24H PO SCH (08:32)
[2020-12-26] MEDS: OXYcodone IR 5MG TABLET PO PRN ×4 (08:33→18:58)
[2020-12-26] MEDS: ACETAMINOPHEN 500 MG TABLET PO PRN ×2 (08:33→15:08)
[2020-12-26] MEDS: SENNA/DOCUSATE TABLET PO SCH (08:33)
[2020-12-26] MEDS: SODIUM CHLORIDE FLUSH 10ML SYR IVF SCH ×2 (08:33→20:07)
[2020-12-26 08:35] VITALS: BP 103/60
[2020-12-26] MEDS: CYCLOBENZAPRINE 10 MG TABLET PO PRN (09:41)
[2020-12-26 12:53] VITALS: BP 117/75
[2020-12-26 19:56] VITALS: BP 112/68
[2020-12-27 01:42] VITALS: BP 105/65
[2020-12-27] MEDS: OXYcodone IR 5MG TABLET PO PRN ×7 (02:04→23:56)
[2020-12-27] MEDS: ACETAMINOPHEN 500 MG TABLET PO PRN ×3 (02:05→14:12)
[2020-12-27 05:56] LABS: BASOPHILS % (AUTO) 0 % (0-1); EOSINOPHILS % (AUTO) 1 % (1-7); LYMPHOCYTES % (AUTO) 11 % (22-44); MEAN CORPUSCULAR HEMOGLOBIN 30.4 pg (27.5-34.5); MEAN PLATELET VOLUME 8.1 fL (7.4-10.4); MONOCYTES % (AUTO) 9 % (2-9); NEUTROPHILS % (AUTO) 79 % (42-75); PLATELET COUNT 212 x10^3/uL (130-400); RED BLOOD COUNT 3.99 x10^6/uL (4.38-5.82); RED CELL DISTRIBUTION WIDTH 12.8 % (9.4-14.8)
[2020-12-27 06:10] LABS: MD NO
[2020-12-27 06:34] VITALS: BP 110/67
[2020-12-27] MEDS: TAMSULOSIN 0.4 MG CAP.ER.24H PO SCH (07:38)
[2020-12-27] MEDS: SENNA/DOCUSATE TABLET PO SCH (07:38)
[2020-12-27] MEDS: SODIUM CHLORIDE FLUSH 10ML SYR IVF SCH ×2 (07:39→20:48)
[2020-12-27] MEDS: CYCLOBENZAPRINE 10 MG TABLET PO PRN (07:55)
[2020-12-27] MEDS: CYCLOBENZAPRINE 10 MG TABLET PO SCH ×3 (08:30→23:56)
[2020-12-27 14:05] VITALS: BP 129/77
[2020-12-27 20:31] VITALS: BP 120/74
[2020-12-27] MEDS: DIPHENHYDRAMINE 50 MG/ML, 1ML IVPush PRN (21:12)
[2020-12-28 02:14] VITALS: BP 115/72
[2020-12-28] MEDS: OXYcodone IR 5MG TABLET PO PRN ×4 (03:07→14:43)
[2020-12-28 05:40] LABS: BASOPHILS % (AUTO) 1 % (0-1); EOSINOPHILS % (AUTO) 2 % (1-7); LYMPHOCYTES % (AUTO) 29 % (22-44); MEAN CORPUSCULAR HEMOGLOBIN 30.3 pg (27.5-34.5); MEAN CORPUSCULAR HGB CONC 34.7 g/dL (33.2-36.2); MONOCYTES % (AUTO) 8 % (2-9); NEUTROPHILS % (AUTO) 61 % (42-75); PLATELET COUNT 215 x10^3/uL (130-400); RED BLOOD COUNT 4.06 x10^6/uL (4.38-5.82); RED CELL DISTRIBUTION WIDTH 13.2 % (9.4-14.8)
[2020-12-28 05:50] LABS: MD NO
[2020-12-28] MEDS: DIPHENHYDRAMINE 50 MG/ML, 1ML IVPush PRN (05:59)
[2020-12-28 08:10] VITALS: BP 112/76
[2020-12-28] MEDS: SODIUM CHLORIDE FLUSH 10ML SYR IVF SCH (09:00)
[2020-12-28] MEDS: CYCLOBENZAPRINE 10 MG TABLET PO SCH ×2 (09:58→16:54)
[2020-12-28] MEDS: SENNA/DOCUSATE TABLET PO SCH (09:58)
[2020-12-28] MEDS: TAMSULOSIN 0.4 MG CAP.ER.24H PO SCH (09:58)
[2020-12-28] MEDS ORDERED: ONDA4TAB7 PO (11:06)
[2020-12-28] MEDS ORDERED: ACET500T64 PO (11:06)
[2020-12-28] MEDS ORDERED: CYCL10TA2 PO (11:06)
[2020-12-28] MEDS ORDERED: TAMS-11 PO (11:06)
[2020-12-28] MEDS ORDERED: SENN-211 PO (11:06)
[2020-12-28 13:25] VITALS: BP 116/77
== END 2020-12-28 17:34 | DRG 520 ==
LOC: ED 09:35 → EDIP 13:26 → INTOOBSV 13:26 → OBSVTOIN 13:26 → 4NE 22:09
PROVIDERS: ADMIT Orthopaedic Surgery; ATTEND Orthopaedic Surgery
PROC: 0SB20ZZ Excision of Lumbar Vertebral Disc, Open Approach (ICD-10-PCS; principal; 2020-12-23 17:30)
PROC: 01NB0ZZ Release Lumbar Nerve, Open Approach (ICD-10-PCS; 2020-12-25)
DX: M51.16 Intervertebral disc disorders with radiculopathy, lumbar region (principal); B19.20 Unspecified viral hepatitis C without hepatic coma; Z20.822 Contact with and (suspected) exposure to COVID-19; S30.0XXA Contusion of lower back and pelvis, initial encounter; R33.9 Retention of urine, unspecified; Z90.49 Acquired absence of other specified parts of digestive tract; Y93.89 Activity, other specified; Y92.89 Other specified places as the place of occurrence of the external cause; Y99.8 Other external cause status
CPT/HCPCS: 36415; 72100; 76000; 96372; 99285; S0020; 71045; 72148; 80048; 80053; 85025; 85610; 85730; 87635; 93005; C1729; G0378; J0171; J0690; J1100; J1170; J1885; J2175; J2250; J2405; J2704; J2710; J3010; J3370; J0330; J1200; J3480

== ENCOUNTER 2021-03-07 17:44 | Emergency (ER) | payer MEDICAID ==
[~2021-03-07] VITALS: Ht 177.8 cm; Wt 116.1 kg
[~2021-03-07 17:44] MED LIST changes: +ACET500T64 PO; +CYCL10TA2 PO; +ONDA4TAB7 PO; +OXYC5TAB2 PO; +SENN-211 PO; +TAMS-11 PO
[2021-03-07] MEDS ORDERED: DIPH,PERTUSS(ACELL),TET VAC/PF 0.5 ML IM-VACC ONE ×2 (18:27→18:30)
--- NOTE | 2021-03-07 18:29 | NUR ---
patient arrives wtih abcess to left middle finger. got pa lidocaine and abcess drained. patient wound dressed with bacitracin and a band aid and reviewed s/s infection and when to return to er.
[2021-03-07 18:30] VITALS: BP 132/75
[2021-03-07] MEDS ORDERED: LIDOCAINE 1%, 10ML INFIL ONE (18:30)
[2021-03-07] MEDS ORDERED: NEOSPORIN OINT. PKT 1 PACKET ONE (18:33)
== END 2021-03-07 18:40 | disposition home or self-care (01) ==
LOC: ED 18:06
DX: L03.012 Cellulitis of left finger (principal); F17.200 Nicotine dependence, unspecified, uncomplicated
CPT/HCPCS: 10060; 90471; 90715